=== PATIENT | male | born 1945 | race Caucasian/White ===

== ENCOUNTER 2021-09-17 07:48 | Day surgery (SDC) | payer MEDICARE, OTHER ==
[2021-09-16 11:30] VITALS: BMI 31.6
[2021-09-17] MEDS ORDERED: EPINEPHrine 1 MG/ML AMP ONE (09:11)
[2021-09-17] MEDS ORDERED: fentaNYL Citrate/PF 100 MCG/2 ML SYRINGE ONE (10:06)
[2021-09-17] MEDS ORDERED: PROPOFOL 40 ML ONE (10:38)
[2021-09-17] MEDS ORDERED: Rocuronium Bromide 10 MG/ML (10ML VIAL) ONE (11:00)
[2021-09-17] MEDS ORDERED: Lidocaine 1% PF 5 ML VIAL ONE (11:00)
[2021-09-17] MEDS ORDERED: Ondansetron PF 4 MG/2 ML Vial ONE (11:00)
[2021-09-17] MEDS ORDERED: Succinylcholine 200 MG/10 ml SYRINGE FS ONE (11:00)
[2021-09-17] MEDS ORDERED: Dexamethasone 20 MG/5 ML VIAL ONE (11:00)
[2021-09-17 11:09] LABS: Hemoglobin 13.2 g/dL (14.0-18.0)
[2021-09-17 11:26] LABS: Anion Gap 11 mmol/L (10-20); BUN (Urea Nitrogen) 13 mg/dL (8.4-25.7); Calc. Creatinine Clearance 102 mL/min (70-130); Calcium 9.2 mg/dL (7.8-10.44); Carbon Dioxide 26 mmol/L (23-31); Chloride 101 mmol/L (98-107); Glucose 115 mg/dL (83-110); Potassium 5.1 mmol/L (3.5-5.1); Sodium 133 mmol/L (136-145)
== END 2021-09-17 11:50 | disposition home or self-care (01) ==
LOC: SDC 07:48
PROVIDERS: ATTEND Otolaryngology Plastic Surgery within the Head & Neck
PROC: 0CBV8ZX Excision of Left Vocal Cord, Via Natural or Artificial Opening Endoscopic, Diagnostic (ICD-10-PCS; principal; 2021-09-17)
DX: C32.0 Malignant neoplasm of glottis (principal); I10 Essential (primary) hypertension; E78.5 Hyperlipidemia, unspecified; J44.9 Chronic obstructive pulmonary disease, unspecified; F17.210 Nicotine dependence, cigarettes, uncomplicated; Z79.899 Other long term (current) drug therapy
CPT/HCPCS: 80048; 85014; 85018; 88305; 88341; 88342; J0171; J1100; J2405; J2704